=== PATIENT | female | born 1985 | race Caucasian/White ===

== ENCOUNTER 2016-10-23 10:00 | Emergency (ER) | payer BC ==
[~2016-10-23] VITALS: Ht 160 cm; Wt 110.0 kg
[~2016-10-23 10:00] MED LIST: CHOL500014 PO; CYAN1TAB29 PO; LEVO25TA4 PO; MULT-658 PO; NIAC500T9 PO; OMEG-110 PO; RED600CA2 PO; VALE100C PO; [UNRECOGNIZED DRUG - OTHER] PO; [UNRECOGNIZED DRUG - REMARK] PO
[2016-10-23 11:13] LABS: BLOOD UREA NITROGEN 14 mg/dL (7-18)
[2016-10-23 11:19] LABS: ASPARTATE AMINO TRANSFERASE 50 U/L (15-37)
[2016-10-23 13:13] VITALS: BP 140/73
== END 2016-10-23 13:17 | disposition home or self-care (01) ==
LOC: ED 13:10
DX: R10.13 Epigastric pain (principal); R10.12 Left upper quadrant pain; Z88.0 Allergy status to penicillin; Z88.5 Allergy status to narcotic agent; Z88.6 Allergy status to analgesic agent
CPT/HCPCS: 36415; 74000; 76700; 76830; 80053; 81003; 83690; 84703; 85025; 99285

== ENCOUNTER 2018-12-16 13:25 | Outpatient (CLI) | payer BC ==
[~2018-12-16 13:25] MED LIST changes: -CHOL500014 PO; +CHOL500045 PO
[2018-12-16] MEDS ORDERED: BUTA1CAP59 PO (14:04)
[2018-12-16] MEDS ORDERED: METH750T2 PO (14:04)
[2018-12-16] MEDS ORDERED: ESOM40CA PO (14:04)
[2018-12-16] MEDS ORDERED: RANI300T PO (14:04)
== END 2018-12-16 23:59 | disposition home or self-care (01) ==
LOC: STAR 13:25
PROVIDERS: ATTEND Internal Medicine Gastroenterology
DX: Z02.9 Encounter for administrative examinations, unspecified (principal)

== ENCOUNTER 2018-12-25 10:58 | Day surgery (SDC) | payer BC ==
[~2018-12-25] VITALS: Ht 162.6 cm; Wt 118.0 kg
[~2018-12-25 10:58] MED LIST changes: +BUTA1CAP59 PO; +ESOM40CA PO; +METH750T2 PO; +RANI300T PO
[2018-12-25] MEDS ORDERED: LACTATED RINGERS 1,000 ML IV SCH (11:07)
[2018-12-25 11:33] VITALS: BP 154/106
[2018-12-25 11:56] LABS: HCG UR SG 1.022 (1.003-1.030)
[2018-12-25] MEDS ORDERED: FENTANYL PF 100 MCG/2ML IV PRN (13:00)
[2018-12-25] MEDS ORDERED: ALBUTEROL SULFATE 2.5 MG/3 ML NPPB PRN (13:00)
[2018-12-25] MEDS ORDERED: FENTANYL PF 100 MCG/2ML ONE (13:12)
[2018-12-25] MEDS ORDERED: PROPOFOL 10 MG/ML, 50ML ONE (15:09)
== END 2018-12-25 14:50 | disposition home or self-care (01) ==
LOC: OUT 10:58
PROVIDERS: ATTEND Internal Medicine Gastroenterology
DX: K29.50 Unspecified chronic gastritis without bleeding (principal); K31.7 Polyp of stomach and duodenum; K20.9 Esophagitis, unspecified; K21.9 Gastro-esophageal reflux disease without esophagitis; J45.909 Unspecified asthma, uncomplicated; E03.9 Hypothyroidism, unspecified; G43.909 Migraine, unspecified, not intractable, without status migrainosus; E66.01 Morbid (severe) obesity due to excess calories; Z88.0 Allergy status to penicillin; Z88.5 Allergy status to narcotic agent; Z90.49 Acquired absence of other specified parts of digestive tract
CPT/HCPCS: 43239; 43248; 45380; 81025; 88305; J2704; J3010; J7120

== ENCOUNTER → 2019-12-28 | Outpatient (CLI) | payer BC | END | disposition home or self-care (01) | LOC: CVU 12:43 | PROVIDERS: ATTEND Internal Medicine Cardiovascular Disease | DX: I10 Essential (primary) hypertension (principal); R42 Dizziness and giddiness | CPT/HCPCS: 93306 ==

== ENCOUNTER 2020-03-14 11:55 | Outpatient (CLI) | payer BC ==
[~2020-03-14 11:55] MED LIST changes: +REGADENOSON 0.4 MG/5 ML SYRINGE ONE
== END 2020-03-15 23:59 | disposition home or self-care (01) ==
LOC: CFH 11:55
PROVIDERS: ATTEND Internal Medicine Cardiovascular Disease
DX: R93.1 Abnormal findings on diagnostic imaging of heart and coronary circulation (principal); R00.2 Palpitations
CPT/HCPCS: 78452; 93017; A9502; J2785

== ENCOUNTER 2020-04-07 11:06 | Inpatient (IN) | payer BC ==
[~2020-04-07] VITALS: Ht 162.6 cm; Wt 123.6 kg
[~2020-04-07 11:06] MED LIST changes: -REGADENOSON 0.4 MG/5 ML SYRINGE ONE
--- NOTE | 2020-04-07 11:55 | NUR ---
Pt BIBA for worsening SOB. Recent DX of pneumonia, being treated at home with Z pack/prednisone. RO Covid. RA sat 89-91% on arrival. Has cough, sore throat, insp pain, nausea, intermittant fevers.
[2020-04-07 12:35] LABS: BASOPHILS % (AUTO) 1 % (0-1); EOSINOPHILS % (AUTO) 0 % (1-7); LYMPHOCYTES % (AUTO) 19 % (22-44); MEAN CORPUSCULAR HEMOGLOBIN 30.5 pg (27.0-34.8); MEAN CORPUSCULAR HGB CONC 33.2 g/dL (32.4-35.8); MEAN PLATELET VOLUME 8.6 fL (7.4-10.4); MONOCYTES % (AUTO) 5 % (2-9); NEUTROPHILS % (AUTO) 76 % (42-75); PLATELET COUNT 266 x10^3/uL (130-400); RED BLOOD COUNT 4.03 x10^6/uL (3.82-5.3); RED CELL DISTRIBUTION WIDTH 12.9 % (9.6-15.2)
[2020-04-07 12:38] LABS: MD NO
--- NOTE | 2020-04-07 12:45 | NUR ---
PIV initaited. No change from baseline. Provided with additional blankets.
[2020-04-07 12:46] LABS: ALANINE AMINOTRANSFERASE 36 U/L (12-78); ANION GAP 3 mmol/L (5-15); CALCIUM 8.2 mg/dL (8.5-10.1); CHLORIDE 105 mmol/L (98-107); CREATININE 0.74 mg/dL (0.55-1.02)
[2020-04-07 12:52] LABS: D-DIMER (DIC) 1.65 ug/mlFEU (0.00-0.52); PROTIME 9.8 Seconds (9.6-11.5)
[2020-04-07 12:53] LABS: ALKALINE PHOSPHATASE 57 U/L (45-117); BILIRUBIN,TOTAL 0.3 mg/dL (0.2-1.0); TOTAL PROTEIN 7.1 g/dL (6.4-8.2)
[2020-04-07] MEDS ORDERED: AZITHROMYCIN 500 MG in SODIUM CHLORIDE 0.9% 250 ML IVPB ONE (13:00)
[2020-04-07] MEDS ORDERED: CEFTRIAXONE PMX 1GM/50ML 50 ML IVPB ONE (13:00)
[2020-04-07 13:07] LABS: RAPID INFLUENZA A Negative (Negative); RAPID INFLUENZA B Negative (Negative)
[2020-04-07] MEDS ORDERED: CEFTRIAXONE PMX 1GM/50ML 50 ML ONE (13:17)
--- NOTE | 2020-04-07 13:24 | NUR ---
ABX infusing, VS updated, pt afebrile.
[2020-04-07] MEDS ORDERED: SODIUM CHLORIDE FLUSH 10ML SYR IVF PRN (13:30)
[2020-04-07] MEDS ORDERED: CEFTRIAXONE PMX 1GM/50ML 50 ML IV SCH (17:30)
[2020-04-07] MEDS ORDERED: DOXYCYCLINE 100 MG in DEXTROSE 5% 250 ML IV SCH (17:30)
[2020-04-07] MEDS: ONDANSETRON 2MG/ML, 2ML IVPush PRN (17:54)
[2020-04-07] MEDS: methylPREDNISolone SOD SUCC 40 MG/ML IV SCH (17:54)
[2020-04-07] MEDS: ASCORBIC ACID 250 MG TAB PO SCH (17:55)
[2020-04-07] MEDS ORDERED: [UNRECOGNIZED DRUG - REMARK] MC SCH (18:30)
[2020-04-07 18:46] VITALS: BP 139/83
[2020-04-07 19:35] LABS: CREATINE KINASE, TOTAL 151 U/L (26-192); TROPONIN I < 0.015 ng/mL (0.000-0.045)
[2020-04-07] MEDS: ENOXAPARIN 40 MG/0.4 ML SQ SCH (19:56)
[2020-04-07] MEDS: DOXYCYCLINE 100 MG in DEXTROSE 5% 250 ML IV SCH (19:58)
[2020-04-07] MEDS ORDERED: TEMPLATE NON-FORMULARY MED. (Ranitidine Hcl** 300 MG) PO SCH (21:00)
[2020-04-07] MEDS: MELATONIN 5 MG TABLET PO PRN (21:36)
[2020-04-08 00:46] VITALS: BP 139/85
[2020-04-08] MEDS: ONDANSETRON 2MG/ML, 2ML IVPush PRN ×4 (01:00→22:07)
[2020-04-08] MEDS: methylPREDNISolone SOD SUCC 40 MG/ML IV SCH ×2 (05:41→16:35)
[2020-04-08] MEDS: SODIUM CHLORIDE 0.9% 1,000 ML IV SCH ×2 (06:47→16:36)
[2020-04-08] MEDS: BENZONATATE 100 MG CAPSULE PO SCH ×3 (07:20→20:15)
[2020-04-08] MEDS: PANTOPRAZOLE 40MG TABLET PO SCH (07:20)
[2020-04-08] MEDS: FOLIC ACID 1 MG TABLET PO SCH (07:20)
[2020-04-08] MEDS: DOXYCYCLINE 100 MG in DEXTROSE 5% 250 ML IV SCH ×2 (07:20→20:15)
[2020-04-08] MEDS: CHOLECALCIFEROL 5,000u TAB PO SCH (07:20)
[2020-04-08] MEDS: ZINC SULFATE 220 MG CAPSULE PO SCH (07:20)
[2020-04-08] MEDS: ASCORBIC ACID 250 MG TAB PO SCH ×2 (07:21→15:14)
[2020-04-08 07:22] VITALS: BP 145/90
[2020-04-08] MEDS ORDERED: LEVOTHYROXINE 25 MCG TABLET PO SCH (09:00)
[2020-04-08 09:35] LABS: ALANINE AMINOTRANSFERASE 42 U/L (12-78); ANION GAP 6 mmol/L (5-15); CALCIUM 8.6 mg/dL (8.5-10.1); CHLORIDE 106 mmol/L (98-107); CREATININE 0.66 mg/dL (0.55-1.02)
[2020-04-08 09:36] LABS: BASOPHILS % (AUTO) 0 % (0-1); EOSINOPHILS % (AUTO) 0 % (1-7); LYMPHOCYTES % (AUTO) 14 % (22-44); MEAN CORPUSCULAR HEMOGLOBIN 30.7 pg (27.0-34.8); MEAN CORPUSCULAR HGB CONC 33.4 g/dL (32.4-35.8); MEAN PLATELET VOLUME 8.6 fL (7.4-10.4); MONOCYTES % (AUTO) 6 % (2-9); NEUTROPHILS % (AUTO) 80 % (42-75); PLATELET COUNT 299 x10^3/uL (130-400); RED BLOOD COUNT 4.25 x10^6/uL (3.82-5.3)
[2020-04-08 09:38] LABS: ALKALINE PHOSPHATASE 54 U/L (45-117); BILIRUBIN,TOTAL 0.3 mg/dL (0.2-1.0); TOTAL PROTEIN 7.2 g/dL (6.4-8.2)
[2020-04-08 09:59] LABS: MD SCAN
[2020-04-08] MEDS ORDERED: REMDESIVIR 200 MG in SODIUM CHLORIDE 0.9% 250 ML IVPB ONE (10:00)
[2020-04-08] MEDS: PROMETHAZINE 25MG TABLET PO PRN ×3 (10:41→20:40)
[2020-04-08] MEDS ORDERED: LABE100T6 PO (10:58)
[2020-04-08 12:37] VITALS: BP 134/87
[2020-04-08] MEDS ORDERED: LORazepam 2 MG/ML, 1ML IVPush ONE (13:00)
[2020-04-08] MEDS: CEFTRIAXONE PMX 1GM/50ML 50 ML IV SCH (13:25)
[2020-04-08] MEDS: LABETALOL 100 MG TABLET PO SCH (16:36)
[2020-04-08 18:32] VITALS: BP 136/82
[2020-04-08] MEDS: ENOXAPARIN 40 MG/0.4 ML SQ SCH (20:00)
[2020-04-08] MEDS: ACETAMINOPHEN 325 MG TABLET PO PRN (20:39)
[2020-04-08] MEDS: MELATONIN 5 MG TABLET PO PRN (20:39)
[2020-04-08] MEDS: LORazepam 1MG TABLET PO PRN (21:09)
[2020-04-08 22:37] LABS: MICROSCOPIC AUTO
[2020-04-09 01:30] VITALS: BP 124/80
[2020-04-09] MEDS: PROMETHAZINE 25MG TABLET PO PRN ×2 (05:10→09:13)
[2020-04-09] MEDS: methylPREDNISolone SOD SUCC 40 MG/ML IV SCH ×2 (05:10→17:33)
[2020-04-09] MEDS: LEVOTHYROXINE 25 MCG TABLET PO SCH (05:11)
[2020-04-09 05:41] LABS: ALBUMIN 2.7 g/dL (3.4-5.0); ANION GAP 7 mmol/L (5-15); CALCIUM 7.9 mg/dL (8.5-10.1); CHLORIDE 107 mmol/L (98-107)
[2020-04-09 05:45] LABS: ALANINE AMINOTRANSFERASE 41 U/L (12-78); ALKALINE PHOSPHATASE 47 U/L (45-117); BILIRUBIN,TOTAL 0.3 mg/dL (0.2-1.0); CREATININE 0.59 mg/dL (0.55-1.02); TOTAL PROTEIN 6.5 g/dL (6.4-8.2)
[2020-04-09] MEDS: LORazepam 1MG TABLET PO PRN (05:55)
[2020-04-09] MEDS: ONDANSETRON 2MG/ML, 2ML IVPush PRN ×3 (05:55→22:22)
[2020-04-09 07:38] VITALS: BP 131/83
[2020-04-09] MEDS: PANTOPRAZOLE 40MG TABLET PO SCH (09:08)
[2020-04-09] MEDS: CHOLECALCIFEROL 5,000u TAB PO SCH (09:08)
[2020-04-09] MEDS: DOXYCYCLINE 100 MG in DEXTROSE 5% 250 ML IV SCH ×2 (09:08→20:16)
[2020-04-09] MEDS: LABETALOL 100 MG TABLET PO SCH ×2 (09:09→17:34)
[2020-04-09] MEDS: BENZONATATE 100 MG CAPSULE PO SCH ×3 (09:09→20:15)
[2020-04-09] MEDS: ZINC SULFATE 220 MG CAPSULE PO SCH (09:09)
[2020-04-09] MEDS: FOLIC ACID 1 MG TABLET PO SCH (09:09)
[2020-04-09] MEDS: ASCORBIC ACID 250 MG TAB PO SCH ×2 (09:09→17:33)
[2020-04-09] MEDS ORDERED: POTASSIUM CHLORIDE 20 MEQ TAB.ER.PRT PO ONE (10:00)
[2020-04-09] MEDS: REMDESIVIR 100 MG in SODIUM CHLORIDE 0.9% 250 ML IVPB SCH (10:35)
[2020-04-09] MEDS: CEFTRIAXONE PMX 1GM/50ML 50 ML IV SCH (13:23)
[2020-04-09 14:00] VITALS: BP 129/84
[2020-04-09] MEDS ORDERED: PROCHLORPERAZINE 5 MG/ML, 2ML IM PRN (14:30)
[2020-04-09] MEDS: ENOXAPARIN 120MG/0.8ML SQ SCH (17:00)
[2020-04-09] MEDS: FAMOTIDINE 20 MG/2 ML IVPush SCH ×2 (17:33→20:15)
[2020-04-09] MEDS: PROMETHAZINE 25 MG/ML, 1ML IM PRN ×2 (17:34→23:25)
[2020-04-09 19:02] VITALS: BP 123/75
[2020-04-09 23:26] VITALS: BP 119/76
[2020-04-09 23:59] VITALS: BP 139/85
[2020-04-10 00:15] VITALS: BP 116/71
[2020-04-10] MEDS: LORazepam 1MG TABLET PO PRN ×3 (00:29→17:49)
[2020-04-10] MEDS: MELATONIN 5 MG TABLET PO PRN (00:29)
[2020-04-10 00:44] VITALS: BP 129/87
[2020-04-10 01:48] VITALS: BP 119/74
[2020-04-10] MEDS: ACETAMINOPHEN 325 MG TABLET PO PRN (01:57)
[2020-04-10] MEDS: ENOXAPARIN 120MG/0.8ML SQ SCH ×2 (05:00→17:00)
[2020-04-10] MEDS: methylPREDNISolone SOD SUCC 40 MG/ML IV SCH ×2 (05:28→17:31)
[2020-04-10] MEDS: LEVOTHYROXINE 25 MCG TABLET PO SCH (05:28)
[2020-04-10 05:48] LABS: BASOPHILS % (AUTO) 0 % (0-1); EOSINOPHILS % (AUTO) 0 % (1-7); LYMPHOCYTES % (AUTO) 33 % (22-44); MEAN CORPUSCULAR HEMOGLOBIN 30.7 pg (27.0-34.8); MEAN CORPUSCULAR HGB CONC 33.4 g/dL (32.4-35.8); MEAN PLATELET VOLUME 7.7 fL (7.4-10.4); MONOCYTES % (AUTO) 11 % (2-9); NEUTROPHILS % (AUTO) 56 % (42-75); PLATELET COUNT 338 x10^3/uL (130-400); RED CELL DISTRIBUTION WIDTH 12.6 % (9.6-15.2)
[2020-04-10 05:53] LABS: ALBUMIN 2.7 g/dL (3.4-5.0); ANION GAP 6 mmol/L (5-15); CHLORIDE 108 mmol/L (98-107)
[2020-04-10 05:54] LABS: MD NO
[2020-04-10 05:57] LABS: ALANINE AMINOTRANSFERASE 43 U/L (12-78); ALKALINE PHOSPHATASE 52 U/L (45-117); BILIRUBIN,TOTAL 0.4 mg/dL (0.2-1.0); TOTAL PROTEIN 6.5 g/dL (6.4-8.2)
[2020-04-10] MEDS: ONDANSETRON 2MG/ML, 2ML IVPush PRN (06:14)
[2020-04-10 07:43] VITALS: BP 155/88
[2020-04-10] MEDS: LABETALOL 100 MG TABLET PO SCH ×2 (08:52→17:31)
[2020-04-10] MEDS: ASCORBIC ACID 250 MG TAB PO SCH ×2 (08:52→17:31)
[2020-04-10] MEDS: DOXYCYCLINE 100 MG in DEXTROSE 5% 250 ML IV SCH ×2 (08:52→20:11)
[2020-04-10] MEDS: CHOLECALCIFEROL 5,000u TAB PO SCH (08:52)
[2020-04-10] MEDS: FOLIC ACID 1 MG TABLET PO SCH (08:52)
[2020-04-10] MEDS: PANTOPRAZOLE 40MG TABLET PO SCH (08:52)
[2020-04-10] MEDS: FAMOTIDINE 20 MG/2 ML IVPush SCH ×2 (08:52→20:11)
[2020-04-10] MEDS: ZINC SULFATE 220 MG CAPSULE PO SCH (08:52)
[2020-04-10] MEDS: BENZONATATE 100 MG CAPSULE PO SCH ×3 (08:53→23:37)
[2020-04-10] MEDS: PROMETHAZINE 25 MG/ML, 1ML IM PRN ×2 (08:53→17:49)
[2020-04-10] MEDS: REMDESIVIR 100 MG in SODIUM CHLORIDE 0.9% 250 ML IVPB SCH (10:27)
[2020-04-10] MEDS: CEFTRIAXONE PMX 1GM/50ML 50 ML IV SCH (13:30)
[2020-04-10 19:25] VITALS: BP 141/82
[2020-04-11 00:48] VITALS: BP 138/92
[2020-04-11] MEDS: ENOXAPARIN 120MG/0.8ML SQ SCH ×2 (05:32→17:40)
[2020-04-11] MEDS: methylPREDNISolone SOD SUCC 40 MG/ML IV SCH ×2 (05:32→17:40)
[2020-04-11] MEDS: LEVOTHYROXINE 25 MCG TABLET PO SCH (05:32)
[2020-04-11] MEDS: ONDANSETRON 2MG/ML, 2ML IVPush PRN (05:34)
[2020-04-11 06:09] LABS: BASOPHILS % (AUTO) 0 % (0-1); EOSINOPHILS % (AUTO) 0 % (1-7); LYMPHOCYTES % (AUTO) 31 % (22-44); MEAN CORPUSCULAR HEMOGLOBIN 30.7 pg (27.0-34.8); MEAN CORPUSCULAR HGB CONC 33.8 g/dL (32.4-35.8); MEAN PLATELET VOLUME 8.3 fL (7.4-10.4); MONOCYTES % (AUTO) 12 % (2-9); NEUTROPHILS % (AUTO) 57 % (42-75); PLATELET COUNT 418 x10^3/uL (130-400); RED BLOOD COUNT 4.17 x10^6/uL (3.82-5.3)
[2020-04-11 06:19] LABS: MD NO
[2020-04-11 06:27] LABS: ALBUMIN 3.1 g/dL (3.4-5.0); CALCIUM 8.7 mg/dL (8.5-10.1); CHLORIDE 106 mmol/L (98-107)
[2020-04-11 06:33] LABS: ALANINE AMINOTRANSFERASE 48 U/L (12-78); ALKALINE PHOSPHATASE 54 U/L (45-117); ANION GAP 6 mmol/L (5-15); BILIRUBIN,TOTAL 0.5 mg/dL (0.2-1.0); CREATININE 0.68 mg/dL (0.55-1.02)
[2020-04-11 07:58] VITALS: BP 123/78
[2020-04-11] MEDS: FOLIC ACID 1 MG TABLET PO SCH (10:04)
[2020-04-11] MEDS: PROMETHAZINE 25 MG/ML, 1ML IM PRN (10:04)
[2020-04-11] MEDS: PANTOPRAZOLE 40MG TABLET PO SCH (10:04)
[2020-04-11] MEDS: DOXYCYCLINE 100 MG in DEXTROSE 5% 250 ML IV SCH ×2 (10:04→20:41)
[2020-04-11] MEDS: FAMOTIDINE 20 MG/2 ML IVPush SCH ×2 (10:04→20:41)
[2020-04-11] MEDS: ASCORBIC ACID 250 MG TAB PO SCH ×2 (10:05→17:41)
[2020-04-11] MEDS: CHOLECALCIFEROL 5,000u TAB PO SCH (10:05)
[2020-04-11] MEDS: ZINC SULFATE 220 MG CAPSULE PO SCH (10:05)
[2020-04-11] MEDS: LABETALOL 100 MG TABLET PO SCH ×2 (10:05→17:41)
[2020-04-11] MEDS: BENZONATATE 100 MG CAPSULE PO SCH ×3 (10:05→20:40)
[2020-04-11] MEDS: REMDESIVIR 100 MG in SODIUM CHLORIDE 0.9% 250 ML IVPB SCH (11:40)
[2020-04-11 12:52] VITALS: BP 120/77
[2020-04-11] MEDS: CEFTRIAXONE PMX 1GM/50ML 50 ML IV SCH (15:07)
[2020-04-11 20:16] VITALS: BP 141/89
[2020-04-11] MEDS: LORazepam 1MG TABLET PO PRN (20:40)
[2020-04-12 02:38] VITALS: BP 136/74
[2020-04-12] MEDS: LEVOTHYROXINE 25 MCG TABLET PO SCH (05:23)
[2020-04-12] MEDS: methylPREDNISolone SOD SUCC 40 MG/ML IV SCH (05:23)
[2020-04-12] MEDS: ENOXAPARIN 120MG/0.8ML SQ SCH ×2 (05:24→17:00)
[2020-04-12 05:35] LABS: ALANINE AMINOTRANSFERASE 49 U/L (12-78); ALBUMIN 2.9 g/dL (3.4-5.0); ANION GAP 7 mmol/L (5-15); CALCIUM 8.4 mg/dL (8.5-10.1); CHLORIDE 108 mmol/L (98-107); CREATININE 0.64 mg/dL (0.55-1.02)
[2020-04-12 05:37] LABS: ALKALINE PHOSPHATASE 52 U/L (45-117); BILIRUBIN,TOTAL 0.5 mg/dL (0.2-1.0); TOTAL PROTEIN 6.6 g/dL (6.4-8.2)
[2020-04-12] MEDS: ASCORBIC ACID 250 MG TAB PO SCH ×2 (08:00→17:00)
[2020-04-12] MEDS: DEXAMETHASONE 4 MG TABLET PO SCH (09:00)
[2020-04-12] MEDS ORDERED: ASCORBIC ACID 500 MG TABLET ONE ×2 (09:05→17:49)
[2020-04-12 09:15] VITALS: BP 114/70
[2020-04-12] MEDS: ZINC SULFATE 220 MG CAPSULE PO SCH (09:17)
[2020-04-12] MEDS: BENZONATATE 100 MG CAPSULE PO SCH ×3 (09:17→20:38)
[2020-04-12] MEDS: CHOLECALCIFEROL 5,000u TAB PO SCH (09:17)
[2020-04-12] MEDS: PANTOPRAZOLE 40MG TABLET PO SCH (09:18)
[2020-04-12] MEDS: FOLIC ACID 1 MG TABLET PO SCH (09:18)
[2020-04-12] MEDS: FAMOTIDINE 20 MG/2 ML IVPush SCH ×2 (09:19→20:38)
[2020-04-12] MEDS: LABETALOL 100 MG TABLET PO SCH ×2 (09:19→17:53)
[2020-04-12] MEDS: DOXYCYCLINE 100 MG in DEXTROSE 5% 250 ML IV SCH ×2 (09:19→20:38)
[2020-04-12 12:39] VITALS: BP 129/87
[2020-04-12] MEDS: REMDESIVIR 100 MG in SODIUM CHLORIDE 0.9% 250 ML IVPB SCH (12:40)
[2020-04-12 13:05] VITALS: BP 128/85
[2020-04-12] MEDS: CEFTRIAXONE PMX 1GM/50ML 50 ML IV SCH (15:24)
[2020-04-12] MEDS: ACETAMINOPHEN 325 MG TABLET PO PRN (18:03)
[2020-04-12 19:03] VITALS: BP 120/81
[2020-04-13] MEDS: DOXYCYCLINE 100 MG in DEXTROSE 5% 250 ML IV SCH ×3 (00:11→20:03)
[2020-04-13] MEDS: LORazepam 1MG TABLET PO PRN ×2 (00:19→23:22)
[2020-04-13 01:51] VITALS: BP 125/80
[2020-04-13] MEDS: LEVOTHYROXINE 25 MCG TABLET PO SCH (05:26)
[2020-04-13] MEDS: ENOXAPARIN 120MG/0.8ML SQ SCH ×2 (05:27→17:00)
[2020-04-13] MEDS ORDERED: ASCORBIC ACID 500 MG TABLET ONE ×2 (07:20→17:13)
[2020-04-13] MEDS: PANTOPRAZOLE 40MG TABLET PO SCH (07:26)
[2020-04-13] MEDS: ASCORBIC ACID 250 MG TAB PO SCH ×2 (07:27→17:00)
[2020-04-13 07:28] VITALS: BP 124/82
[2020-04-13] MEDS: LABETALOL 100 MG TABLET PO SCH ×2 (07:33→17:19)
[2020-04-13] MEDS: ZINC SULFATE 220 MG CAPSULE PO SCH (09:08)
[2020-04-13] MEDS: FAMOTIDINE 20 MG/2 ML IVPush SCH ×2 (09:08→20:03)
[2020-04-13] MEDS: CHOLECALCIFEROL 5,000u TAB PO SCH (09:08)
[2020-04-13] MEDS: DEXAMETHASONE 4 MG TABLET PO SCH (09:09)
[2020-04-13] MEDS: BENZONATATE 100 MG CAPSULE PO SCH ×3 (09:09→20:03)
[2020-04-13] MEDS: FOLIC ACID 1 MG TABLET PO SCH (09:09)
[2020-04-13] MEDS: ACETAMINOPHEN 325 MG TABLET PO PRN (13:16)
[2020-04-13 13:56] VITALS: BP 128/89
[2020-04-13] MEDS: CEFTRIAXONE PMX 1GM/50ML 50 ML IV SCH (15:26)
[2020-04-13 19:39] VITALS: BP 122/82
[2020-04-13] MEDS: GUAIFENESIN ER 600 MG TABLET PO SCH (20:03)
[2020-04-14 00:56] VITALS: BP 155/97
[2020-04-14] MEDS: LEVOTHYROXINE 25 MCG TABLET PO SCH (05:32)
[2020-04-14] MEDS: ENOXAPARIN 120MG/0.8ML SQ SCH ×2 (05:32→17:00)
[2020-04-14] MEDS ORDERED: ASCORBIC ACID 500 MG TABLET ONE ×2 (07:39→17:02)
[2020-04-14 07:46] VITALS: BP 143/85
[2020-04-14] MEDS: PANTOPRAZOLE 40MG TABLET PO SCH (07:48)
[2020-04-14] MEDS: ASCORBIC ACID 250 MG TAB PO SCH ×2 (07:48→17:00)
[2020-04-14] MEDS: LABETALOL 100 MG TABLET PO SCH ×2 (07:48→17:00)
[2020-04-14] MEDS: DOXYCYCLINE 100 MG in DEXTROSE 5% 250 ML IV SCH (08:26)
[2020-04-14] MEDS: DEXAMETHASONE 4 MG TABLET PO SCH (09:00)
[2020-04-14] MEDS: FOLIC ACID 1 MG TABLET PO SCH (09:52)
[2020-04-14] MEDS: FAMOTIDINE 20 MG/2 ML IVPush SCH (09:52)
[2020-04-14] MEDS: GUAIFENESIN ER 600 MG TABLET PO SCH (09:52)
[2020-04-14] MEDS: ZINC SULFATE 220 MG CAPSULE PO SCH (09:53)
[2020-04-14] MEDS: BENZONATATE 100 MG CAPSULE PO SCH ×2 (09:53→17:00)
[2020-04-14] MEDS: CHOLECALCIFEROL 5,000u TAB PO SCH (09:57)
[2020-04-14 12:54] VITALS: BP 118/78
[2020-04-14] MEDS ORDERED: ASCO250T12 PO (13:07)
[2020-04-14] MEDS ORDERED: ZINC220C7 PO (13:07)
[2020-04-14] MEDS ORDERED: BENZ-17 PO (13:07)
[2020-04-14] MEDS ORDERED: GUAI600T31 PO (13:07)
[2020-04-14] MEDS ORDERED: DEXA4TAB66 PO (13:07)
== END 2020-04-14 21:20 | disposition home or self-care (01) | DRG 871 ==
LOC: ED 12:32 → 3N 13:08 → UNDODISIN 04-14 18:40
PROVIDERS: ADMIT Family Medicine; ATTEND Family Medicine
PROC: XW033E5 Introduction of Remdesivir Anti-infective into Peripheral Vein, Percutaneous Approach, New Technology Group 5 (ICD-10-PCS; principal; 2020-04-09)
PROC: XW13325 Transfusion of Convalescent Plasma (Nonautologous) into Peripheral Vein, Percutaneous Approach, New Technology Group 5 (ICD-10-PCS; 2020-04-09)
DX: A41.89 Other specified sepsis (principal); J12.89 Other viral pneumonia; J96.01 Acute respiratory failure with hypoxia; U07.1 COVID-19; D72.810 Lymphocytopenia; E03.9 Hypothyroidism, unspecified; E78.5 Hyperlipidemia, unspecified; G43.909 Migraine, unspecified, not intractable, without status migrainosus; I10 Essential (primary) hypertension; Z82.3 Family history of stroke; Z91.030 Bee allergy status; Z91.011 Allergy to milk products; Z88.5 Allergy status to narcotic agent; Z88.0 Allergy status to penicillin; Z91.018 Allergy to other foods
CPT/HCPCS: 36415; 84145; 87400; 96365; 96368; 99285; Q0169; 71045; 71275; 80053; 81001; 82550; 82728; 83605; 83615; 83880; 84484; 85025; 85049; 85379; 85384; 85610; 85730; 86140; 86850; 86900; 87040; 87086; 93005; G0378; J0456; J0696; J1650; J2405; J2550; J7060; J0780; J2060; J2920; J7030; J7050; P9017; U0003